=== PATIENT | male | born 1970 | race Caucasian/White ===

== ENCOUNTER 2018-01-12 11:50 | Emergency (ER) | payer BC, SELFPAY ==
[2018-01-12 11:57] VITALS: BP 124/104; PULSE 90; RESP 18; TEMP 36.6; O2SAT 95; BMI 23.7
--- NOTE | 2018-01-12 12:07 | XR_ITS ---
XR chest 2V INDICATION: Chest pain COMPARISON: None available FINDINGS: The cardiovascular structures are unremarkable. No mediastinal shift or hilar mass is evident. The lungs are well expanded and clear bilaterally. The costophrenic sulci are sharp. No significant bony anomalies are apparent. There is been previous anterior cervical spine fusion lower cervical spine IMPRESSION: Negative chest.
[2018-01-12 12:30] LABS: Basophils % 0.6 % (0.1-2.0); Eosinophils # 0.2 K/mm3 (0.0-0.4); Eosinophils % 2.7 % (0.1-12.0); Hematocrit 45.8 % (42.0-52.0); Hemoglobin 15.7 g/dL (14.1-18.0); Lymphocytes # 1.1 K/mm3 (0.7-4.5); Lymphocytes % 17.1 K/mm3 (10-50); Mean Corpuscular HGB Conc 34.4 g/dL (31.8-35.4); Mean Corpuscular Hemoglobin 32.2 pg (27.0-31.2); Mean Corpuscular Volume 93.6 fl (80-94); Mean Platelet Volume 7.3 fl (7.4-10.4); Monocytes # 0.6 K/mm3 (0.1-1.0); Monocytes % 8.8 % (1.7-9.3); Neutrophils # 4.5 K/mm3 (1.8-7.8); Neutrophils % 70.8 % (37.0-80.0); Platelet Count 252 K/mm3 (142-424); Red Blood Count 4.89 M/mm3 (4.60-6.20); Red Cell Distribution Width 12.4 % (11.5-17.5); White Blood Count 6.4 K/mm3 (4.8-10.8)
--- NOTE | 2018-01-12 12:41 | [facility].EDSOB ---
ED Disposition Clinical Impression: Acute bronchitis, Reactive airway disease, Seasonal allergies Disposition: Home, Self-Care Condition on Discharge: Fair Additional Instructions: 1-avoid smoke and smoker. 2-start ceftin antibiotics and medrol dose pack. 3-use inhaler as directed 4-follow-up with a primary care physician in the morning. 5-return if needed. Prescriptions: Albuterol Sulfate [Albuterol HFA Inhaler] 1 puff IH Q4HP PRN #1 inh PRN Reason: Shortness Of Breath Or Wheezing Benzonatate [Tessalon Perle 100mg Cap] 200 mg PO Q4HP PRN #30 cap PRN Reason: Cough cefUROXime axetil [Ceftin 250mg Tablet] 500 mg PO BID #14 tab Referrals: Abi Hernández [Primary Care Provider] - - Critical Care Critical Care Time: No Attestation: On 01/12/18, the high probability of a clinically significant, sudden or life threatening deterioration of the following system(s) required my full and direct attention, intervention and personal management. The time I documented below is in addition to time spent performing reported procedures but includes the following listed in this critical care notation. Medical Decision Making - Kennedy Inquiry Pt receiving controlled substance: No Kennedy was queried for this patient: No Vital Signs: 01/12/18 11:57 01/12/18 13:00 Temperature 97.8 F Temperature Source Oral Pulse Rate 98 H Pulse Rate [Right Radial] 90 Respiratory Rate 18 Blood Pressure [Right Arm] 124/104 Blood Pressure Mean [Right Arm] 110 Blood Pressure Source [Right Arm] Automatic Cuff Blood Pressure Position [Right Arm] Supine 02 Sat by Pulse Oximetry 95 Oxygen Delivery Method Room Air - Lab Data Lab Results 01/12/18 12:17: WBC 6.4, RBC 4.89, Hgb 15.7, Hct 45.8, MCV 93.6, MCH 32.2 H, MCHC 34.4, RDW 12.4, Plt Count 252, MPV 7.3 L, Neut % (Auto) 70.8, Lymph % (Auto) 17.1, [place] % (Auto) 8.8, Eos % (Auto) 2.7, Baso % (Auto) 0.6, Neut # (Auto) 4.5, Lymph # (Auto) 1.1, [place] # (Auto) 0.6, Eos # (Auto) 0.2, Baso # (Auto) 0.0 01/12/18 12:17: Sodium 142, Potassium 3.9, Chloride 104, Carbon Dioxide 29, Anion Gap 12.9, BUN 6 L, Creatinine 0.89, Estimated Creat Clear 114, Estimated GFR 91, Est GFR ( Amer) 110, Glucose 100, Calcium 8.8, Total Bilirubin 0.8, AST 28, ALT 57, Alkaline Phosphatase 103, Total Creatine Kinase 74, CK-MB (CK-2) < 0.5, CK-MB (CK-2) Rel Index 0.7, Troponin I < 0.02, Total Protein 7.7, Albumin 3.9, Globulin 3.8 H, Albumin/Globulin Ratio 1.0 L 01/12/18 12:17: D-Dimer < 100 01/12/18 12:17: B-Natriuretic Peptide 10 Result diagrams: 01/12/18 12:17 01/12/18 12:17 Orders (Tests/Meds): ORDERS Category Date Time Status Sputum Culture & Gram Stain Stat Micro 01/12/18 12:41 Ordered - Radiology Data #1 Image(s): Chest Image Reviewed: Yes I reviewed the patient's radiology image Preliminary Findings: Normal/NAD - ECG Data Tracing #1 Normal sinus rhythm 75/min baseline artifact, poor R-wave progression in inferior leads, no acute findings ECG initial impression date: 01/12/18 ECG initial impression time: 12:45 Medical Decision Narrative: The patient remained stable felt better after nebulizer treatment. He was ruled out for myocardial infarction by negative troponin, not for pulmonary embolism with normal dimer, rule out for congestive heart failure with normal BNP. Chest x-ray was negative for infiltrates. We discussed the use of antibiotics inhalers and cough medicine until he improves. Up with her primary care physician until he returns to normal. Resp/SOB HPI - General Chief Complaint: Shortness of Breath/Dyspnea Stated Complaint: poss pneumonia Time Seen by Provider: 01/12/18 12:20 Mode of Arrival: Ambulatory Limitations: No Limitations Description of Symptoms (Recalled from ER Triage Doc. by RN): COUGHING FOR DAYS, SEEN PREVIOUSLY AT [facility] FOR SINUS INFECTION AND TREATED WITH AMOXICILLIN 500MG Q12HR AND STEROID INJEC
--- NOTE | 2018-01-12 12:44 | ED_ITS ---
ED Disposition Clinical Impression: Acute bronchitis, Reactive airway disease, Seasonal allergies Disposition: Home, Self-Care Condition on Discharge: Fair Additional Instructions: 1-avoid smoke and smoker. 2-start ceftin antibiotics and medrol dose pack. 3-use inhaler as directed 4-follow-up with a primary care physician in the morning. 5-return if needed. Prescriptions: Albuterol Sulfate [Albuterol HFA Inhaler] 1 puff IH Q4HP PRN #1 inh PRN Reason: Shortness Of Breath Or Wheezing Benzonatate [Tessalon Perle 100mg Cap] 200 mg PO Q4HP PRN #30 cap PRN Reason: Cough cefUROXime axetil [Ceftin 250mg Tablet] 500 mg PO BID #14 tab Referrals: Abi Hernández [Primary Care Provider] - - Critical Care Critical Care Time: No Attestation: On 01/12/18, the high probability of a clinically significant, sudden or life threatening deterioration of the following system(s) required my full and direct attention, intervention and personal management. The time I documented below is in addition to time spent performing reported procedures but includes the following listed in this critical care notation. Medical Decision Making - Kennedy Inquiry Pt receiving controlled substance: No [place] was queried for this patient: No Vital Signs: 01/12/18 11:57 01/12/18 13:00 Temperature 97.8 F Temperature Source Oral Pulse Rate 98 H Pulse Rate [Right Radial] 90 Respiratory Rate 18 Blood Pressure [Right Arm] 124/104 Blood Pressure Mean [Right Arm] 110 Blood Pressure Source [Right Arm] Automatic Cuff Blood Pressure Position [Right Arm] Supine 02 Sat by Pulse Oximetry 95 Oxygen Delivery Method Room Air - Lab Data Lab Results 01/12/18 12:17: WBC 6.4, RBC 4.89, Hgb 15.7, Hct 45.8, MCV 93.6, MCH 32.2 H, MCHC 34.4, RDW 12.4, Plt Count 252, MPV 7.3 L, Neut % (Auto) 70.8, Lymph % (Auto ) 17.1, [place] % (Auto) 8.8, Eos % (Auto) 2.7, Baso % (Auto) 0.6, Neut # (Auto) 4.5, Lymph # (Auto) 1.1, [place] # (Auto) 0.6, Eos # (Auto) 0.2, Baso # (Auto) 0.0 01/12/18 12:17: Sodium 142, Potassium 3.9, Chloride 104, Carbon Dioxide 29, Anion Gap 12.9, BUN 6 L, Creatinine 0.89, Estimated Creat Clear 114, Estimated GFR 91, Est GFR ( Amer) 110, Glucose 100, Calcium 8.8, Total Bilirubin 0.8, AST 28, ALT 57, Alkaline Phosphatase 103, Total Creatine Kinase 74, CK-MB ( CK-2) < 0.5, CK-MB (CK-2) Rel Index 0.7, Troponin I < 0.02, Total Protein 7.7, Albumin 3.9, Globulin 3.8 H, Albumin/Globulin Ratio 1.0 L 01/12/18 12:17: D-Dimer < 100 01/12/18 12:17: B-Natriuretic Peptide 10 Result diagrams: 01/12/18 12:17 01/12/18 12:17 Orders (Tests/Meds): ORDERS Category Date Time Status Sputum Culture & Gram Stain Stat Micro 01/12/18 12:41 Ordered - Radiology Data #1 Image(s): Chest Image Reviewed: Yes I reviewed the patient's radiology image Preliminary Findings: Normal/NAD - ECG Data Tracing #1 Normal sinus rhythm 75/min baseline artifact, poor R-wave progression in inferior leads, no acute findings ECG initial impression date: 01/12/18 ECG initial impression time: 12:45 Medical Decision Narrative: The patient remained stable felt better after nebulizer treatment. He was ruled out for myocardial infarction by negative troponin, not for pulmonary embolism with normal dimer, rule out for congestive heart failure with normal BNP. Chest x-ray was neg
[2018-01-12 12:50] LABS: Alanine Aminotransferase 57 U/L (12-78); Albumin Level 3.9 gm/dL (3.4-5.0); Alkaline Phosphatase 103 U/L (46-116); Anion Gap 12.9 mEq/L (5-15); Aspartate Amino Transferase 28 U/L (15-37); Bilirubin,Total 0.8 mg/dL (0.2-1.0); Blood Urea Nitrogen 6 mg/dL (7-18); CKMB Relative Index 0.7 U/L (0-4.0); Calcium 8.8 mg/dL (8.5-10.1); Carbon Dioxide 29 mmol/L (21.0-32.0); Chloride 104 mmol/L (98-107); Creatine Kinase 74 U/L (39-308); Creatine Kinase MB < 0.5 mg/ml (0.0-3.6); Creatinine Clearance Estimated 114 mL/min (0-300); Creatinine,Serum 0.89 mg/dL (0.70-1.30); Estimated Glomerular Filt Rate 91 ml/min (>60); GFR (African American) 110 ML/MIN (>60); Globulin 3.8 gm/dl (1.3-3.2); Glucose 100 mg/dL (74-106); Potassium 3.9 mmoL/L (3.5-5.1); Sodium 142 mmol/L (136-145); Total Protein,Serum 7.7 gm/dL (6.4-8.2); Troponin I < 0.02 ng/ml (0.00-0.06)
[2018-01-12 13:00] VITALS: PULSE 98
[2018-01-12 13:19] LABS: D-Dimer < 100 (0-400)
[2018-01-12 14:24] VITALS: BP 143/104; PULSE 103; RESP 16; TEMP 36.8; O2SAT 99
== END 2018-01-12 14:26 | disposition home or self-care (01) ==
PROVIDERS: Emergency Provider Emergency Medicine; PCP Internal Medicine Gastroenterology
DX: J20.9 Acute bronchitis, unspecified (principal); J45.909 Unspecified asthma, uncomplicated; J30.2 Other seasonal allergic rhinitis; K21.9 Gastro-esophageal reflux disease without esophagitis
CPT/HCPCS: 71046; 80053; 82550; 82553; 83880; 84484; 85025; 85378; 93005; 96374; 96375; 99283

== ENCOUNTER → 2021-10-26 19:44 | Outpatient (CLI) | payer BC, SELFPAY | PROVIDERS: Visit Provider Nurse Practitioner Family | DX: Z20.822 Contact with and (suspected) exposure to COVID-19 (principal) | CPT/HCPCS: C9803; U0003; U0005 ==